=== PATIENT | male | born 1985 | race Caucasian/White ===

== ENCOUNTER 2025-09-14 08:16 | Day surgery (SDC) | payer OTHER ==
[2025-09-12 08:57] VITALS: BMI 29.5
[2025-09-14] MEDS ORDERED: AFRIN NASAL MIST 15 ML BOT ONE ×2 (08:42→10:13)
[2025-09-14] MEDS ORDERED: Bacitracin 1 PK ONE (08:42)
[2025-09-14] MEDS ORDERED: Lidocaine 1% w/Epinephrine 1:200K 30 ML VIAL ONE (08:43)
[2025-09-14] MEDS ORDERED: PROPOFOL 20 ML ONE ×2 (09:49→11:08)
[2025-09-14] MEDS ORDERED: Lidocaine 1% PF 5 ML VIAL ONE (09:49)
[2025-09-14] MEDS ORDERED: Rocuronium Bromide 10 MG/ML (10ML VIAL) ONE (09:49)
[2025-09-14] MEDS ORDERED: Ondansetron PF 4 MG/2 ML Vial ONE ×2 (10:41→11:11)
[2025-09-14] MEDS ORDERED: Oxymetazoline HCl 0.05% (15 ML) ONE (10:55)
[2025-09-14] MEDS ORDERED: SUGAMMADEX SODIUM 200 MG/2 ML VIAL ONE (11:33)
[2025-09-14] MEDS ORDERED: HYDROcodone/Acetaminophen 5/325 mg Tablet ONE (12:36)
== END 2025-09-14 13:50 | disposition home or self-care (01) ==
LOC: CSHSDC 08:16
PROVIDERS: ATTEND Specialist
PROC: 09BL8ZZ Excision of Nasal Turbinate, Via Natural or Artificial Opening Endoscopic (ICD-10-PCS; principal; 2025-09-14)
PROC: 8E09XBZ Computer Assisted Procedure of Head and Neck Region (ICD-10-PCS; principal; 2025-09-14)
PROC: 09BR8ZZ Excision of Left Maxillary Sinus, Via Natural or Artificial Opening Endoscopic (ICD-10-PCS; principal; 2025-09-14)
PROC: 09BW8ZZ Excision of Right Sphenoid Sinus, Via Natural or Artificial Opening Endoscopic (ICD-10-PCS; principal; 2025-09-14)
PROC: 09BQ8ZZ Excision of Right Maxillary Sinus, Via Natural or Artificial Opening Endoscopic (ICD-10-PCS; principal; 2025-09-14)
PROC: 09BS8ZZ Excision of Right Frontal Sinus, Via Natural or Artificial Opening Endoscopic (ICD-10-PCS; principal; 2025-09-14)
PROC: 09BX8ZZ Excision of Left Sphenoid Sinus, Via Natural or Artificial Opening Endoscopic (ICD-10-PCS; principal; 2025-09-14)
PROC: 09BT8ZZ Excision of Left Frontal Sinus, Via Natural or Artificial Opening Endoscopic (ICD-10-PCS; principal; 2025-09-14)
PROC: 09BV8ZZ Excision of Left Ethmoid Sinus, Via Natural or Artificial Opening Endoscopic (ICD-10-PCS; principal; 2025-09-14)
PROC: 09BU8ZZ Excision of Right Ethmoid Sinus, Via Natural or Artificial Opening Endoscopic (ICD-10-PCS; principal; 2025-09-14)
DX: J32.4 Chronic pansinusitis (principal); J34.2 Deviated nasal septum; J34.3 Hypertrophy of nasal turbinates; J30.89 Other allergic rhinitis; Z88.0 Allergy status to penicillin; Z88.2 Allergy status to sulfonamides
CPT/HCPCS: 93005; 93010; J0169; J1100; J2405; J2704; J3010